=== PATIENT | male | born 1995 | race Caucasian/White ===

== ENCOUNTER 2020-06-21 12:54 | Emergency (ER) | payer OTHER, SELFPAY ==
--- NOTE | ~2020-06-21 | XR_ITS ---
EXAMINATION: XR hand RT min 3V INDICATION: Right hand pain, initial encounter TECHNIQUE: Three views of the right hand are obtained. COMPARISON: None available FINDINGS: There is an acute, traumatic, closed, transverse mid shaft fracture of the fifth metacarpal . There are approximately 30 degrees of palmar angulation at the fracture site. Soft tissue swelling surrounds the fracture. The joint spaces are normal. No additional acute osseous findings are evident . IMPRESSION: 1. Acute mid shaft fracture of the fifth metacarpal with palmar angulation. Reviewed, dictated and finalized at location A. ATOR OPERATOR
[2020-06-21 12:59] VITALS: BP 149/89; PULSE 110; RESP 18; TEMP 35.7; O2SAT 99
[2020-06-21] MEDS: IBUPROFEN 600 MG TABLET PO (13:36)
--- NOTE | 2020-06-21 13:38 | ED.GENADULT ---
HPI - General Adult General Chief complaint: Extremity Injury, Upper Stated complaint: possible right hand fracture Time Seen by Provider: 06/21/20 12:59 Source: patient Mode of arrival: ambulatory Limitations: no limitations History of Present Illness HPI narrative: Patient is a 25-year-old male who presents to emergency department for evaluation of right hand pain that began just prior to arrival patient notes he was at work became angry and punched a wall patient notes aching pain of the right hand over the fifth metacarpal worse with activity and movement patient denies other injury or trauma Related Data Allergies Allergy/AdvReac Type Severity Reaction Status Date / Time No Known Allergies Allergy Verified 08/15/18 17:55 Review of Systems Review of Systems: All systems reviewed & are unremarkable except as noted in HPI and below PMFSH Social History Social History Smoking status: Never smoker Exam Narrative: Exam Narrative: GENERAL: Well-appearing, well-nourished, and in no acute distress. HEAD: Normocephalic, atraumatic. EYES: PERRLA and EOMI. ENT: Nares clear, no rhinorrhea or epistaxis. Mucous membranes moist. EXTREMITIES: Normal range of motion. No edema. Tenderness and slight swelling along the right fifth metacarpal SKIN: Warm, dry, no rash. NEURO: No focal deficits. Alert and oriented x3. Neurovascularly intact. Capillary refill less than 2 seconds PSYCH: Normal mood and affect. Course Course Emergency Course: Patient in the room at this time aware of case findings treatment plan and diagnosis agreeing to follow-up as directed or to return if symptoms worsen or concerns patient set up with hand surgery at [facility] patient was placed in OCL splint Consultations Consultation #1: Discussed case with hand surgeon Cecil who is covering for the Ortho hand clinic notes that the patient can be placed in ulnar gutter splint and follow in clinic on the the hand surgeon will reach out to the patient has been given the demographic information for the patient Date: 06/21/20 Time: 14:40 Vital Signs Vital signs: Vital Signs Temperature 96.3 F L 06/21/20 12:59 Pulse Rate 110 H 06/21/20 12:59 Respiratory Rate 18 06/21/20 12:59 Blood Pressure 149/89 H 06/21/20 12:59 Pulse Oximetry 99 06/21/20 12:59 Temperature 96.3 F L 06/21/20 12:59 Pulse Rate 110 H 06/21/20 12:59 Respiratory Rate 18 06/21/20 12:59 Blood Pressure 149/89 H 06/21/20 12:59 Pulse Oximetry 99 06/21/20 12:59 Procedures Orthopedic Splinting/Casting Injury #1: Splinting/Casting Date: 06/21/20 Splinting/Casting Time: 13:42 Side: right Upper Extremity Injury Location: hand Splint: customized in ED OCL: ulnar gutter Pre-Procedure Neuro Vascular Exam: normal Post-Procedure Neuro Vascular Exam: normal Other Orthopedic Equipment: other (sling) Medical Decision Making MDM Narrative Medical decision making narrative: Patients injury or pain is consistent with musculoskeletal etiology. No signs of neurological or vascular compromise on exam. Compartments and tisues are soft without signs of compartment syndrome. Pain is felt appropriate for further evaluation on an outpatient basis. Patient supplied with hand surgery follow-up Vital Signs Vital Signs: Vital Signs Temperature 96.3 F L 06/21/20 12:59 Pulse Rate 110 H 06/21/20 12:59 Respiratory Rate 18 06/21/20 12:59 Blood Pressure 149/89 H 06/21/20 12:59 Pulse Oximetry 99 06/21/20 12:59 Temperature 96.3 F L 06/21/20 12:59 Pulse Rate 110 H 06/21/20 12:59 Respiratory Rate 18 06/21/20 12:59 Blood Pressure 149/89 H 06/21/20 12:59 Pulse Oximetry 99 06/21/20 12:59 Imaging Data Radiologist's impression: ITS Impressions Hand X-Ray 06/21/20 13:22 IMPRESSION: 1. Acute mid shaft fracture of the fifth metacarpal with pa
--- NOTE | 2020-06-21 13:40 | PC.NURSE ---
patient refused sling
[2020-06-21 15:25] VITALS: BP 130/62; PULSE 70; RESP 18; O2SAT 99
== END 2020-06-21 15:27 | disposition home or self-care (01) ==
PROVIDERS: Emergency Provider Emergency Medicine; PCP Emergency Medicine
DX: S62.326A Displaced fracture of shaft of fifth metacarpal bone, right hand, initial encounter for closed fracture (principal); W22.09XA Striking against other stationary object, initial encounter
CPT/HCPCS: 29125; 73130; 99284; A9270

== ENCOUNTER 2020-06-28 01:32 | Outpatient (CLI) | payer OTHER, SELFPAY ==
[2020-06-29 14:16] LABS: SARS-CoV-2 RNA PCR Negative
== END 2020-06-28 01:33 | disposition home or self-care (01) ==
LOC: ANHCOVIDDT 01:32
PROVIDERS: PCP Emergency Medicine; Visit Provider Plastic Surgery
DX: Z01.818 Encounter for other preprocedural examination (principal); Z20.828 Contact with and (suspected) exposure to other viral communicable diseases
CPT/HCPCS: 87635; C9803; U0003

== ENCOUNTER 2020-07-02 01:01 | Day surgery (SDC) | payer OTHER, SELFPAY ==
[2020-06-25 17:35] VITALS: BMI 36.6
--- NOTE | 2020-07-01 15:03 | WPDANESEPPF ---
Anes - Initial Pre Proc Eval Procedure: Operation Date: 07/02/20 09:30 Proposed Procedures p Closed Reduction Right Fifth Metacarpal Fracture with Intramedullary Quinn Fixation - Frederic George MD <Efra Schwarz MD - Last Filed: 07/01/20 15:03> Date/Time: 07/01/20 15:03 <Efra Schwarz MD - Last Filed: 07/01/20 15:03> Surgeon: Frederic George MD <Efra Schwarz MD - Last Filed: 07/01/20 15:03> Pre Op Diagnosis: mid shaft fx right 5th metacarpal <Efra Schwarz MD - Last Filed: 07/01/20 15:03> Patient Data Age: 25 Gender: M Height: 6 ft Weight: 122.5 kg <fEra Schwarz MD - Last Filed: 07/01/20 15:03> Allergies Allergy/AdvReac Type Severity Reaction Status Date / Time No Known Allergies Allergy Verified 06/25/20 17:39 <Efra Schwarz MD - Last Filed: 07/01/20 15:03> Home Medications Medication Instructions Recorded Confirmed Type No Home Medications 06/25/20 06/25/20 History <Efra Schwarz MD - Last Filed: 07/01/20 15:03> Patient hx anesthesia problems: none <Orlando Zafar DO - Last Filed: 07/02/20 08:11> Family hx anesthesia problems: none <Orlando Zafar DO - Last Filed: 07/02/20 08:11> [facility] Past Medical History Medical History: Medical History (Updated 07/01/20 @ 15:03 by Efra Schwarz MD) Obesity <Efra Schwarz MD - Last Filed: 07/01/20 15:03> Social History Social History: Social History Smoking status: Never smoker Tobacco type: cigarettes Additional smoking assessment comments: OFF & ON, ALWAYS LESS THAN A PPD Living arrangements: with family Spiritual care concerns: No <Efra Schwarz MD - Last Filed: 07/01/20 15:03> Anes - Eval Final PreProcedure Day of Procedure 07/01/20 15:03 <Efra Schwarz MD - Last Filed: 07/01/20 15:03> Patient weight: obese <Orlando Zafar DO - Last Filed: 07/02/20 08:11> Heart: regular rate and rhythm <Orlando Zafar DO - Last Filed: 07/02/20 08:11> Lungs: clear to auscultation and normal air movement <Orlando Zafar DO - Last Filed: 07/02/20 08:11> Airway: Mallampati scale class 1 <Orlando Zafar DO - Last Filed: 07/02/20 08:11> Neurological: alert and oriented <Orlando Zafar DO - Last Filed: 07/02/20 08:11> Last oral intake: >/= 8 hours <Orlando Zafar DO - Last Filed: 07/02/20 08:11> ASA classification: II <Orlando Zafar DO - Last Filed: 07/02/20 08:11> Emergent: no <Orlando Zafar DO - Last Filed: 07/02/20 08:11> Anesthetic plan: proceed <Orlando Zafar DO - Last Filed: 07/02/20 08:11> Anesthesia type and monitoring: general LMA and standard monitoring <Orlando Zafar DO - Last Filed: 07/02/20 08:11> Informed Consent: The patient's anesthetic plan and its attendant risks and benefits were discussed with the patient/family/POA. Questions were solicited and answers provided to the satisfaction of the patient/family/POA. <Efra Schwarz MD - Last Filed: 07/01/20 15:03>
[2020-07-02] VITALS (8 sets, daily range): BP systolic 98–140; BP diastolic 59–86; PULSE 88–104; RESP 12–39; TEMP 36.1–36.2; O2SAT 94–99
--- NOTE | ~2020-07-02 | XR_ITS ---
EXAMINATION: XR surgery orthopedic DATE: 07/02/2020 10:53 INDICATION: Right fifth metacarpal fracture. TECHNIQUE: 2 intraoperative fluoroscopic views of right hand were obtained. I was not present. Fluoro scopy exposure time was 1 minute 34 seconds. COMPARISON: Right hand radiographs 06/21/2020 FINDINGS: There is a transverse fracture midshaft of fifth metacarpal in near-anatomic alignment with fixation with an intramedullary pin. IMPRESSION: 1. Transverse fracture of midshaft of fifth metacarpal with fixation. Reviewed, dictated and finalized at location A. N TECH
--- NOTE | 2020-07-02 07:20 | WPDHPUPDATE1 ---
History and Physical Update Update Date/Time: 07/02/20 07:20 History and Physical has been reviewed, including an updated exam of the patient. There are NO changes in the patient's condition. Risks, benefits, and alternatives have been discussed and questions answered. Patient agrees to proceed with procedure.
--- NOTE | 2020-07-02 07:21 | WPDHPUPDATE1 ---
History and Physical Update Update Date/Time: 07/02/20 07:21 History and Physical has been reviewed, including an updated exam of the patient. There are NO changes in the patient's condition. Risks, benefits, and alternatives have been discussed and questions answered. Patient agrees to proceed with procedure.
[2020-07-02] MEDS: LACTATED RINGERS 1,000 ML 30 ML IV CONT ×2 (08:00→11:17)
[2020-07-02] MEDS: LIDO 1%/EPINEPHRINE 1:100,000 20 ML VIAL 10 ML INFILTRATE (10:18)
[2020-07-02] MEDS: BACITRACIN OINTMENT 15 GM TUBE 1 APPLIC TOPICAL (10:19)
--- NOTE | 2020-07-02 11:24 | P.OPB_ITS ---
Procedure Note - Brief Procedure Note - Brief Date of procedure: 07/02/20 Pre-op diagnosis: mid shaft fx right 5th metacarpal Post-op diagnosis: same Procedure performed: ORIF of R 5th metacarpal shaft fracture with IM jennifer. Anesthesia: GLMA Surgeon: Frederic George MD [employer] Sergeant: Jones Estimated blood loss (mL): 1 Tourniquet time (min): 0 Drains: No Packing: No Pathology: none sent Complications: No immediate complications Condition: stable Disposition: PACU
[2020-07-02] MEDS: fentaNYL CITRATE INJ (*CRX) 100 MCG/2 ML VIAL 25 MCG IV PUSH ×8 (11:26→11:41)
--- NOTE | 2020-07-02 11:27 | PM.PROC ---
Procedure Note - Detailed Date of procedure: 07/02/20 Pre-op diagnosis: mid shaft fx right 5th metacarpal Post-op diagnosis: same Procedure performed: Open reduction and internal fixation of right 5th metacarpal Description of procedure: The appropriate metacarpal was marked in the holding area. The patient was taken to the operating room and placed supine on the operating table. Time-out was held and confirmed. The patient was given endotracheal anesthesia and the extremity was prepped and draped in the usual fashion. The C-arm was brought to the table and the appropriate site on the base of the 5th metacarpal was marked with a 25 gauge needle. This area was infiltrated with 1% lidocaine with epinephrine. An incision was made. Dissection to the periosteum was done bluntly. The introducer was placed and the site confirmed by C-arm images. The introducer was used to fenestrate the base of the 5th metacarpal and the 1.6 mm pin was inserted into the medullary canal. Under fluoroscopic control the pin was advanced across the fracture line until it abutted the head of the 5th metacarpal. Satisfactory alignment was achieved. The pin was bent appropriately it was cut, the sheath was placed over that penetrating into the medullary canal. The pin was again cut and the plastic cap applied. The wound was closed with the interrupted 5 0 nylon after confirming the construct. A bulky gauze bandage with Coban wrap was applied. The patient was awakened and discharged from the operating room stable condition. He is being discharged with instructions in wound care and follow-up. A prescription for hydrocodone 5/325 10 was sent to his pharmacy. Anesthesia: GETA Surgeon: Frederic George MD Welder First Class: Jones Estimated blood loss (mL): 1 Tourniquet time (min): 0 Drains: No Packing: No Pathology: none sent Complications: No immediate complications Condition: stable Disposition: PACU
[2020-07-02] MEDS: ONDANSETRON INJ 4 MG/2 ML VIAL IV PUSH (12:05)
== END 2020-07-02 12:37 | disposition home or self-care (01) ==
PROVIDERS: PCP Emergency Medicine; Visit Provider Plastic Surgery
PROC: (CPT 26615; principal; 2020-07-02 09:30)
DX: S62.326A Displaced fracture of shaft of fifth metacarpal bone, right hand, initial encounter for closed fracture (principal); W22.09XA Striking against other stationary object, initial encounter; E66.9 Obesity, unspecified; Z68.39 Body mass index [BMI] 39.0-39.9, adult
CPT/HCPCS: 26615; A9270; C1713; J1100; J2250; J2405; J2704; J3010; J7120

== ENCOUNTER 2020-08-30 01:36 | Outpatient (CLI) | payer OTHER, SELFPAY ==
[2020-08-31 00:20] LABS: SARS-CoV-2 RNA PCR Negative
== END 2020-08-30 01:37 | disposition home or self-care (01) ==
LOC: ANHCOVIDDT 01:36
PROVIDERS: PCP Emergency Medicine; Visit Provider Plastic Surgery
DX: Z01.812 Encounter for preprocedural laboratory examination (principal); Z20.822 Contact with and (suspected) exposure to COVID-19
CPT/HCPCS: C9803; U0003; U0005

== ENCOUNTER 2020-09-03 00:28 | Day surgery (SDC) | payer OTHER, SELFPAY ==
[2020-08-29 14:19] VITALS: BMI 36.6
--- NOTE | ~2020-09-03 | XR_ITS ---
EXAMINATION: XR surgery orthopedic DATE: 09/03/2020 07:30 INDICATION: Removal of fixation pin at the right fifth metacarpal TECHNIQUE: 2 fluoroscopic images of the ulnar side of the right hand were obtained during procedure p erformed by Dr. George. Radiologist was not present for the imaging or procedure. The amount of fluoro scopy time used during this procedure was 3.1 minutes. COMPARISON: 07/02/2020 FINDINGS/IMPRESSION: Interval solid healing of a pinned mid diaphyseal fracture of the right fifth metacarpal which remain s in essentially anatomic alignment. See procedure note for further detail. Reviewed, dictated and finalized at location B. SKILLS CONSULTANT
[2020-09-03 06:09] VITALS: BP 150/83; PULSE 101; RESP 20; TEMP 36.6; O2SAT 99
[2020-09-03] MEDS: LACTATED RINGERS 1,000 ML 30 ML IV CONT (06:30)
--- NOTE | 2020-09-03 07:06 | P.PNAN_ITS ---
Anes - Initial Pre Proc Eval Procedure: Operation Date: 09/03/20 07:30 Proposed Procedures p Removal Of Internal Fixation Pin Right Fifth Metacarpal - Frederic George MD Date/Time: 09/03/20 07:06 Surgeon: Frederic George MD Pre Op Diagnosis: Status Post ORIF Right Fifth Metacarpal Patient Data Age: 25 Gender: M Height: 6 ft Weight: 135.8 kg Last Vital Signs Temp 97.8 F 09/03/20 06:09 Pulse 101 H 09/03/20 06:09 Resp 20 09/03/20 06:09 BP 150/83 H 09/03/20 06:09 Pulse Ox 99 09/03/20 06:09 Allergies Allergy/AdvReac Type Severity Reaction Status Date / Time No Known Allergies Allergy Verified 09/03/20 06:25 Home Medications Medication Instructions Recorded Confirmed Type No Home Medications 09/03/20 09/03/20 History Patient hx anesthesia problems: none Family hx anesthesia problems: none [facility] Past Medical History Medical History (Updated 07/01/20 @ 15:03 by Efra Schwarz MD) Obesity Social History Social History Smoking status: Never smoker Tobacco type: cigarettes Additional smoking assessment comments: OFF AND ON,, ALWAYS LESS THAN A PACK A DAY Living arrangements: with family Spiritual care concerns: No Anes - Eval Final PreProcedure Day of Procedure 09/03/20 07:06 Patient weight: morbidly obese Heart: regular rate and rhythm Lungs: clear to auscultation Airway: Mallampati scale class II Neurological: alert and oriented Last oral intake: >/= 8 hours ASA classification: III Emergent: no Anesthetic plan: proceed Anesthesia type and monitoring: general GIVS and standard monitoring Informed Consent: The patient's anesthetic plan and its attendant risks and benefits were discussed with the patient/family/POA. Questions were solicited and answers provided to the satisfaction of the patient/family/POA.
--- NOTE | 2020-09-03 07:16 | WPDHPUPDATE1 ---
History and Physical Update Update Date/Time: 09/03/20 07:16 History and Physical has been reviewed, including an updated exam of the patient. There are NO changes in the patient's condition. Risks, benefits, and alternatives have been discussed and questions answered. Patient agrees to proceed with procedure.
[2020-09-03] MEDS: LIDO 1%/EPINEPHRINE 1:100,000 50 ML VIAL INFILTRATE (07:31)
[2020-09-03] MEDS: BACITRACIN OINTMENT 15 GM TUBE 1 APPLIC TOPICAL (07:33)
--- NOTE | 2020-09-03 07:51 | PM.OP ---
Procedure Note - Brief Procedure Note - Brief Date of procedure: 09/03/20 Pre-op diagnosis: Status Post ORIF Right Fifth Metacarpal Post-op diagnosis: same Procedure performed: Planned removal of fixation hardware, right 5th metacarpal. Anesthesia: GLMA and MAC Surgeon: Frederic George MD Estimated blood loss (mL): 0 Tourniquet time (min): 10 Drains: No Packing: No Pathology: none sent Complications: No immediate complications Condition: stable Disposition: same day
--- NOTE | 2020-09-03 07:58 | P.OP_ITS ---
Procedure Note - Detailed Date of procedure: 09/03/20 Pre-op diagnosis: Status Post ORIF Right Fifth Metacarpal Post-op diagnosis: same Procedure performed: Planned removal of fixation hardware right 5th metacarpal Description of procedure: The pin site on the right radial hand was marked as the patient was in holding. I was taken to the operating room placed supine on the operating table time-out was held and confirmed. He was given IV sedation. The extremity was prepped and draped in usual fashion. The site was imaged with C-arm. Local anesthetic was infiltrated about 10 milliliter. The tourniquet was inflated to 250 mmHg. The incision was made as marked through the existing scar. Blunt dissection revealed the pin end. The components of that were removed and the pin backed out with a large needle pugh. the wound was closed with interrupted 5 0 nylon suture. A small compressive bandage was applied the patient was discharged with instructions in wound care and follow- up. Anesthesia: MAC Surgeon: Frederic George MD Global Account Manager: Gelacio Estimated blood loss (mL): 0 Tourniquet time (min): 10 Drains: No Packing: No Pathology: none sent Complications: No immediate complications Condition: stable Disposition: same day
[2020-09-03 08:00] VITALS: BP 134/66; PULSE 103; RESP 16; O2SAT 97
[2020-09-03 08:30] VITALS: BP 133/64; PULSE 98; RESP 16
== END 2020-09-03 09:11 | disposition home or self-care (01) ==
PROVIDERS: PCP Emergency Medicine; Visit Provider Plastic Surgery
PROC: (CPT 20694; principal; 2020-09-03 07:30)
DX: Z47.2 Encounter for removal of internal fixation device (principal); S62.326D Displaced fracture of shaft of fifth metacarpal bone, right hand, subsequent encounter for fracture with routine healing; E66.01 Morbid (severe) obesity due to excess calories; Z68.41 Body mass index [BMI] 40.0-44.9, adult
CPT/HCPCS: 20680; A9270; J1170; J2250; J2405; J2704; J7120

== ENCOUNTER 2021-09-27 14:31 | Emergency (ER) | payer OTHER, SELFPAY ==
[2021-09-27 14:33] VITALS: BP 146/86; PULSE 95; RESP 16; TEMP 36.4; O2SAT 99
[2021-09-27] MEDS: KETOROLAC (*BKC) 60 MG/2 ML VIAL IM (15:21)
--- NOTE | 2021-09-27 15:25 | ED.BACK ---
HPI - Back Pain/Injury General Chief Complaint: Back Pain/Injury Stated Complaint: back pain Time Seen by Provider: 09/27/21 15:01 Source: patient Mode of arrival: ambulatory Limitations: no limitations History of Present Illness HPI Narrative: This is a 26 year old male who presents for evaluation of right side sciatica pain. He has been having this pain intermittently for 2 weeks. He has been treating with ice and hot therapy. His pain was worse last night but it has improved today. He states his pain occasionally radiates to right leg. He denies leg weakness or numbness currently. He denies saddle anesthesia. Denies urinary incontinence, retention, dysuria, nausea, vomiting, or abdominal pain. He reports having similar pain 3 years again. He came to ER to get pain injection that he received 3 years ago , because his pain resolved after this injection. On review of records, patient received toradol and valium at that time. Related Data Allergies Allergy/AdvReac Type Severity Reaction Status Date / Time No Known Allergies Allergy Verified 09/27/21 14:33 Review of Systems Review of Systems: All systems reviewed & are unremarkable except as noted in HPI and below PMFSH Past Medical History Medical History (Updated 09/27/21 @ 15:55 by Amaya Geller MD) Obesity Sciatica Surgical History Surgical History (Updated 09/27/21 @ 15:53 by Amaya Geller MD) H/O hand surgery Social History Social History Smoking status: Never smoker Tobacco type: cigarettes Additional smoking assessment comments: OFF AND ON,, ALWAYS LESS THAN A PACK A DAY Spiritual care concerns: No Exam Const: General: no acute distress and alert Nutritional Appearance: obese Orientation/consciousness: patient oriented x3 Eyes: EOM: EOMs intact bilaterally Resp: Effort & Inspection: normal respiratory effort and no retractions Auscultation: clear to auscultation bilaterally Cardio: Rate: regular rate Rhythm: regular rhythm Heart sounds: no murmurs GI: GI Palp: Yes Soft to palpation, No Tenderness to palpation present (GI) and No Guarding due to palpation present (GI) Auscultation: normal bowel sounds : General: Yes no CVA tenderness Back/Spine/Pelvis: Back: no CVA tenderness Thoracic/Lumbar Spine: thoracic and lumbar spine normal to inspection Pelvis: no pain with anterior-posterior compression Skin: General skin exam: normal color Neuro: General: patient oriented x3, moves all extremities and CN's II-XI intact bilaterally Extrem: General: normal to inspection Psych: Mental Status: mental status grossly normal Affect: normal affect Course Reevaluation(s) Reevaluation #1: Patient has no signs of cauda equina or cord compression at this time. Date: 09/27/21 Time: 15:54 Vital Signs Vital signs: Vital Signs Temperature 97.6 F 09/27/21 14:33 Pulse Rate 95 09/27/21 14:33 Respiratory Rate 16 09/27/21 14:33 Blood Pressure 146/86 H 09/27/21 14:33 Pulse Oximetry 99 09/27/21 14:33 Temperature 97.6 F 09/27/21 14:33 Pulse Rate 95 09/27/21 14:33 Respiratory Rate 16 09/27/21 14:33 Blood Pressure 146/86 H 09/27/21 14:33 Pulse Oximetry 99 09/27/21 14:33 Discharge Plan Discharge Clinical Impression: Sciatica Qualifiers: Laterality: right Qualified Code(s): M54.31 - Sciatica, right side Patient Disposition: Home, Self-Care Condition: Stable Instructions: Antibiotic Form, Sciatica (ED), Acute Low Back Pain (ED) Additional Instructions: Follow up with your primary care physician if your pain continues. Prescriptions: New cyclobenzaprine 10 mg tablet 10 mg PO TID PRN (Reason: muscle spasm) Qty: 14 RF: 0 naproxen 500 mg tablet 500 mg PO BID PRN (Reason: pain) Qty: 20 RF: 0 Follow-up/Referrals: Kashmir Redman MD [Primary Care Provider] -
== END 2021-09-27 16:05 | disposition home or self-care (01) ==
PROVIDERS: Emergency Provider General Practice; PCP Emergency Medicine
DX: M54.31 Sciatica, right side (principal); E66.9 Obesity, unspecified; Z68.38 Body mass index [BMI] 38.0-38.9, adult; F17.210 Nicotine dependence, cigarettes, uncomplicated
CPT/HCPCS: 96372; 99283; J1885

== ENCOUNTER 2021-12-16 17:05 | Outpatient (CLI) | payer OTHER, SELFPAY ==
--- NOTE | ~2021-12-16 | MR_ITS ---
EXAMINATION: MR lumbar spine wo con DATE: 12/16/2021 17:38 INDICATION: Low back pain, unspecified. TECHNIQUE: Magnetic resonance imaging (MRI) of the lumbar spine was performed without intravenous con trast. Sequences included sagittal T2-weighted FSE, sagittal T2-weighted FS FSE, sagittal T1-weighted FSE, and axial T2-weighted FSE. COMPARISON: Lumbar spine radiographs 08/17/2018 FINDINGS: There is 5 degrees dextrocurvature of thoracolumbar spine. There is mild chronic anterior w edging of L1, L2, and L5 vertebral bodies. There are Schmorl's nodes at L1-L2, L2-L3, L4-L5, and L5-S 1. There is 3 mm retrolisthesis of L5 on S1. There is moderately decreased disc height at L2-L3, mild ly decreased disc height at L4-L5, and moderately decreased disc height at L5-S1 with endplate remode ling. The distal spinal cord signal intensity is normal. The conus medullaris is at T12-L1. The follo wing disc levels are specifically discussed: L1-L2: The disc does not extend beyond the endplate margin. There is no facet joint osteoarthritis. T here is no neural foraminal stenosis. There is no central canal stenosis. L2-L3: The disc is bulging. There is mild bilateral facet joint osteoarthritis. There is no neural fo raminal stenosis. There is mild central canal stenosis. L3-L4: There is a right central protrusion with annular fissure. There is severe bilateral facet join t osteoarthritis. There is mild bilateral neural foraminal stenosis. There is mild central canal sten osis. L4-L5: The disc is bulging and has an annular fissure. There is mild right and moderate left facet prashanth int osteoarthritis. There is mild bilateral neural foraminal stenosis. There is mild central canal st enosis. L5-S1: The disc is bulging with superimposed right central and subarticular zone extrusion with 18 mm inferior extension. There is moderate bilateral facet joint osteoarthritis. There is moderate bilate ral neural foraminal stenosis. There is severe central canal stenosis. IMPRESSION: 1. Severe lumbar spondylosis, worst at L5-S1. Reviewed, dictated and finalized at location A.
== END 2021-12-16 17:06 | disposition home or self-care (01) ==
PROVIDERS: PCP Emergency Medicine; Visit Provider Physician Assistant Surgical
DX: M47.897 Other spondylosis, lumbosacral region (principal)
CPT/HCPCS: 72148

== ENCOUNTER 2022-08-12 16:16 | Emergency (ER) | payer OTHER, SELFPAY ==
[2022-08-12 16:24] VITALS: BP 134/80; PULSE 107; RESP 18; TEMP 37.2; O2SAT 98
--- NOTE | 2022-08-12 16:24 | ED.URI ---
HPI - URI/Sore Throat General Chief Complaint: Upper Respiratory Infection Stated Complaint: uri Source: patient and RN notes reviewed Mode of arrival: ambulatory Limitations: no limitations History of Present Illness HPI Narrative: 27 y/o male presented for c/o sinus pressure, drainage, sore throat, ear pressure, cough productive yellow sputum in the morning. Cough persists throughout the day. Reports symptoms started almost 10 days ago, and he believes he had influenza at onset as his tested positive. Taking cold&sinus med. Denies sob, wheezing, n/v/d/f/c. MD elicited complaint: cough Related Data Allergies Allergy/AdvReac Type Severity Reaction Status Date / Time No Known Allergies Allergy Verified 09/27/21 14:33 Review of Systems Review of Systems: CONSTITUTIONAL:denies malaise, chills, sweats, fever EYES: Denies visual changes, redness, or discharge ENT: per hpi CARDIOVASCULAR: Denies chest pain, palpitations, edema RESPIRATORY: Reports cough, post nasal drainage. Denies dyspnea GASTROINTESTINAL: Denies abdominal pain, nausea, vomiting, diarrhea SKIN: Denies rash or itching MUSCULOSKELETAL: Denies myalgia NEUROLOGIC: Denies headache [facility] Past Medical History Medical History Obesity Sciatica Surgical History Surgical History H/O hand surgery Social History Social History Smoking status: Never smoker Tobacco type: cigarettes Additional smoking assessment comments: OFF AND ON,, ALWAYS LESS THAN A PACK A DAY Spiritual care concerns: No Exam Narrative: GENERAL: Ill-appearing, nontoxic EYES: PERRLA, conjunctivae clear ENT: Mucous membranes moist. TMs pearly chen with dull light reflex bilaterally; no tragal tenderness. Oropharynx without lesions or exudate, no drooling, no hoarseness, no trismus, uvula midline. CHEST: Clear to auscultation, breath sounds equal. HEART: Regular rate and rhythm. No murmur heard. SKIN: Warm, dry, no rash. PSYCH: flat affect, speaks minimally Course Course Emergency Course: Patient is aware of diagnosis, understands and agrees to treatment plan. Anticipatory guidance given. Patient agrees to follow-up as directed and is aware of reasons to seek care at the emergency department. Portions of this record may have been created with voice recognition software Level of Care: Express Care Visit Vital Signs Vital signs: reviewed MDM - URI/Sore Throat MDM Narrative Medical decision making narrative: Advised supportive measures and signs/symptoms to go to the ER. Pt is appropriate for outpt treatment and f/u. Differential Diagnosis Differential diagnosis: Likely upper respiratory infection, sinusitis and viral infection Discharge Plan Discharge Clinical Impression: Upper respiratory infection Patient Disposition: Home, Self-Care Condition: Stable Instructions: Antibiotic Form, Upper Respiratory Infection (ED) Additional Instructions: Recommend Flonase spray and Zyrtec (or Claritin/Daisy) over the counter Cough syrup may cause drowsiness; avoid driving or take it at night time. Tylenol 1000mg every 8 hours as needed for pain Symptomatic treatment includes: rest, fluids, and increase humidity of the air at home. Follow up with your primary care provider in 1 week. Go to the ER for worsening symptoms or concerns. Prescriptions: New cetirizine [Zyrtec] 10 mg tablet 10 mg PO DAILY PRN (Reason: congestion) Qty: 30 0RF azithromycin [Zithromax Z-Brian] 250 mg tablet See Rx Instructions .ROUTE .COMPLEX Qty: 6 0RF Rx Instructions: For 250 mg dose pack: take 500 mg today (day 1), then 250 mg for 4 days (days 2-5) fluticasone propionate [Flonase Allergy Relief] 50 mcg/actuation spray,suspension 1 spray intranasal DAILY PRN (Reason: allergy symptoms) Qty:
== END 2022-08-12 16:46 | disposition home or self-care (01) ==
PROVIDERS: Emergency Provider Nurse Practitioner Family; PCP Emergency Medicine
DX: J06.9 Acute upper respiratory infection, unspecified (principal); E66.9 Obesity, unspecified; Z68.38 Body mass index [BMI] 38.0-38.9, adult; Z72.0 Tobacco use
CPT/HCPCS: 99213; G0463

== ENCOUNTER 2023-06-07 15:20 | Emergency (ER) | payer OTHER, SELFPAY ==
[2023-06-07 15:31] VITALS: BP 136/86; PULSE 97; RESP 16; TEMP 37.3; O2SAT 99
--- NOTE | 2023-06-07 15:37 | ED.URI ---
HPI - URI/Sore Throat General Chief Complaint: Upper Respiratory Infection Stated Complaint: Sinus/Sore Throat Source: patient and RN notes reviewed Mode of arrival: ambulatory Limitations: no limitations History of Present Illness HPI Narrative: 28 y/o male presented for c/o sore throat, nasal congestion and cough. Onset 3 days. Reports his child tested positive for covid last week. Taking Gabriela seltzer for symptoms. Denies sob, wheezing, n/v/d/f/c. He tested negative for covid prior to symptom onset, tested due to exposure. MD elicited complaint: cough Related Data Home Medications Medication Instructions Recorded Confirmed No Home Medications 06/07/23 06/07/23 Allergies Allergy/AdvReac Type Severity Reaction Status Date / Time No Known Allergies Allergy Verified 06/07/23 15:31 Review of Systems Review of Systems: CONSTITUTIONAL: Endorses malaise, denies chills, sweats, fever EYES: Denies visual changes, redness, or discharge ENT: Reports rhinorrhea, congestion, sore throat CARDIOVASCULAR: Denies chest pain, palpitations, edema RESPIRATORY: Reports cough, post nasal drainage. Denies dyspnea GASTROINTESTINAL: Denies abdominal pain, nausea, vomiting, diarrhea SKIN: Denies rash or itching MUSCULOSKELETAL: Endorses myalgia NEUROLOGIC: Denies headache PMFSH Past Medical History Medical History Obesity Sciatica Surgical History Surgical History H/O hand surgery Social History Social History Smoking status: Light tobacco smoker Tobacco type: cigarettes Additional smoking assessment comments: OFF AND ON,, ALWAYS LESS THAN A PACK A DAY Living arrangements: with family Spiritual care concerns: No Exam Narrative: GENERAL: mildly Ill-appearing, nontoxic no acute distress. HEAD: Normocephalic EYES: conjunctivae clear ENT: Mucous membranes moist. TMs pearly chen with dull light reflex bilaterally; no tragal tenderness. Oropharynx normal without lesions or exudate, no drooling, no hoarseness, no trismus, uvula midline. NECK: Supple. No lymphadenopathy CHEST: Clear to auscultation, breath sounds equal. No wheezing, rhonchi, rales, or stridor. No respiratory distress, speaks in full sentences. HEART: Regular rate and rhythm. No murmur heard. SKIN: Warm, dry, no rash. NEURO: Alert and oriented x3. PSYCH: Normal mood and affect Course Course Emergency Course: Patient is aware of diagnosis, understands and agrees to treatment plan. Anticipatory guidance given. Patient agrees to follow-up as directed and is aware of reasons to seek care at the emergency department. Portions of this record may have been created with voice recognition software Level of Care: Express Care Visit Vital Signs Vital signs: Vital Signs Temperature 99.2 F 06/07/23 15:31 Pulse Rate 97 06/07/23 15:31 Respiratory Rate 16 06/07/23 15:31 Blood Pressure 136/86 06/07/23 15:31 Pulse Oximetry 99 06/07/23 15:31 Oxygen Delivery Room Air 06/07/23 15:31 Temperature 99.2 F 06/07/23 15:31 Pulse Rate 97 06/07/23 15:31 Respiratory Rate 16 06/07/23 15:31 Blood Pressure 136/86 06/07/23 15:31 Pulse Oximetry 99 06/07/23 15:31 Oxygen Delivery Room Air 06/07/23 15:31 reviewed MDM - URI/Sore Throat MDM Narrative Medical decision making narrative: tested negative for COVID and strep, Discussed physical exam findings. Recommend retest on day 6, and continue precautions given the known exposure.Advised supportive measures and signs/symptoms to go to the ER. Pt is appropriate for outpt treatment and f/u. Differential Diagnosis Differential diagnosis: Likely upper respiratory infection, sinusitis and viral infection Lab Data Labs: Lab Results 06/07/23 Range/Units 15:45 POC SARS CoV-2 Ag Negative (Nega
== END 2023-06-07 16:24 | disposition home or self-care (01) ==
PROVIDERS: Emergency Provider Nurse Practitioner Family; PCP Emergency Medicine
DX: B34.9 Viral infection, unspecified (principal); Z20.822 Contact with and (suspected) exposure to COVID-19; F17.210 Nicotine dependence, cigarettes, uncomplicated; E66.9 Obesity, unspecified; Z68.33 Body mass index [BMI] 33.0-33.9, adult
CPT/HCPCS: 87081; 87426; 87880; 99213; C9803; G0463

== ENCOUNTER 2024-10-05 18:06 | Emergency (ER) | payer OTHER, SELFPAY ==
[2024-10-05 18:18] VITALS: BP 146/78; PULSE 111; RESP 18; TEMP 37.2; O2SAT 95
--- NOTE | 2024-10-05 18:23 | ED.URI ---
HPI - URI/Sore Throat General Chief Complaint: Upper Respiratory Infection Stated Complaint: Bodyaches/Sore Throat Time Seen by Provider: 10/05/24 18:23 Source: patient Mode of arrival: ambulatory Limitations: no limitations History of Present Illness HPI Narrative: 29-year-old male presents with complaint of cough, chest congestion, nasal congestion, fatigue, sore throat, body aches, fever for 2 days. Denies nausea vomiting diarrhea. Taking [id number] Robitussin to treat cough. All systems reviewed and negative except as noted above. Related Data Home Medications ?Medication ?Instructions ?Recorded ?Confirmed ?Last Taken ?Type No Home Medications 06/07/23 10/05/24 Unknown History Allergies Allergy/AdvReac Type Severity Reaction Status Date / Time No Known Allergies Allergy Verified 10/05/24 18:08 Review of Systems Review of Systems: CONSTITUTIONAL: reports fever, chills, or sweats. EYES: Denies visual changes, redness, or discharge. ENT: Reports rhinorrhea, congestion, sore throat. Denies otalgia. CARDIOVASCULAR: Denies chest pain, palpitations, or edema. RESPIRATORY: reports cough . Denies dyspnea. GASTROINTESTINAL: Denies abdominal pain, nausea, vomiting, or diarrhea. GENITOURINARY: Denies dysuria or hematuria. SKIN: Denies rash or itching. MUSCULOSKELETAL: Denies back pain, joint pain, or myalgia. NEUROLOGIC: Denies headache, numbness, or weakness. PSYCHIATRIC: Denies anxiety or depression. All other systems reviewed are negative, except as documented in HPI. PMFSH Past Medical History Medical History Obesity Sciatica Surgical History Surgical History H/O hand surgery Social History Social History Smoking status: Light tobacco smoker Tobacco type: cigarettes Additional smoking assessment comments: OFF AND ON,, ALWAYS LESS THAN A PACK A DAY Living arrangements: with family Spiritual care concerns: No Comments At time of signature, agree with nursing past medical, surgical, social and family history. There is no relevant family history pertinent to the presenting complaint. Exam Narrative: GENERAL: This is a well-nourished, well-developed patient, ill-appearing but no acute distress HEAD: normocephalic, atraumatic. EYES: PERRL. Sclera clear/white. Vision is grossly intact. EARS: External ears normal, auditory canals clear and without drainage, TMs normal without perforation. Hearing grossly intact. NOSE: External nose normal with no obvious nasal discharge, nares without redness, no rhinorrhea. THROAT: Mucous membranes moist, clear nasal drainage without erythema swelling or exudates. NECK: Neck supple, non-tender without lymphadenopathy, masses or thyromegaly. CARDIOVASCULAR: Regular rate and rhythm without murmurs, gallops, or rubs. RESPIRATORY: Clear to auscultation. Breath sounds equal bilaterally. No wheezes, rales, or rhonchi. SKIN: warm, Dry, intact with no suspicious lesions or rash, good texture and turgor. NEURO: awake, alert, and oriented to person, place and time. There were no obvious focal neurologic abnormalities. EXTREMITIES: No joint tenderness, effusion, or edema noted. Course Course Level of Care: Express Care Visit Vital Signs Vital signs: Vital Signs Temperature 37.2 C 10/05/24 18:18 Pulse Rate 111 H 10/05/24 18:18 Respiratory Rate 18 10/05/24 18:18 Blood Pressure 146/78 H 10/05/24 18:18 Pulse Oximetry 95 10/05/24 18:18 Oxygen Delivery Room Air 10/05/24 18:18 Temperature 37.2 C 10/05/24 18:18 Pulse Rate 111 H 10/05/24 18:18 Respiratory Rate 18 10/05/24 18:18 Blood Pressure 146/78 H 10/05/24 18:18 Pulse Oximetry 95 10/05/24 18:18 Oxygen Delivery Room Air 10/05/24 18:18 Reviewed MDM - URI/Sore Throat MDM Narrative Medical decision making narrative: negative COVID, influenza and strep. Strep culture ordered. Lungs clear to auscultation. Patient is alert, nontoxic. Recommend [id number] medications to treat viral symptoms. Please be advised this is a medical document. It is intended for [id number] communication. It is written in medical language and may contain unfamiliar abbreviations or verbiage. Medical documents are intended to carry relevant information, facts as evident, and the clinical opinion of the practitioner at the time of the encounter. This report may have been done utilizing a voice recognition system. Attempts have been made to correct errors. However, there may be uncorrected grammatical, spelling, and recognition errors present. The file time of this note does not necessarily represent the time of service. Differential Diagnosis Differential diagnosis: Likely upper respiratory infection, sinusitis, viral infection, influenza and pharyngitis Discharge Plan Discharge Clinical Impression: Viral upper respiratory tract infection with cough Patient Disposition: Home, Self-Care Condition: Stable Instructions: Upper Respiratory Infection (ED) Additional Instructions: Your COVID, influenza and strep test was negative today. A strep culture was ordered and results will take 24-48 hours. If your strep culture is positive we will call you at that time and prescribed an antibiotic. Your symptoms are all and may last 10-14 days. Taking hebc-tay-xtdnuis medication to treat her symptoms such as DayQuil NyQuil cold and flu. Take ibuprofen every 6-8 hours as needed for pain and fever. Drink at least 64 oz of water a day. Follow-up with your doctor if symptoms are not improving. Patient Language: Luxembourgish Prescriptions: No Action No Home Medications Follow-up/Referrals: Kashmir Redman MD [Primary Care Provider] - Time of Disposition: 18:37
[2024-10-05 18:33] LABS: EDCOVIDSCREEN Negative (Negative); EDINFLUASCREEN Negative (Negative); EDINFLUBSCREEN Negative (Negative); EDSTREPNEGPOS1 Negative (Negative)
== END 2024-10-05 18:40 | disposition home or self-care (01) ==
PROVIDERS: Emergency Provider Nurse Practitioner Family; PCP Emergency Medicine
DX: J06.9 Acute upper respiratory infection, unspecified (principal); R05.9 Cough, unspecified; Z20.822 Contact with and (suspected) exposure to COVID-19; F17.210 Nicotine dependence, cigarettes, uncomplicated; E66.9 Obesity, unspecified; Z68.33 Body mass index [BMI] 33.0-33.9, adult
CPT/HCPCS: 87081; 87426; 87804; 87880; 99213; G0463